=== PATIENT | male | born 1990 | race Caucasian/White ===

== ENCOUNTER 2022-12-12 06:32 | Emergency (ER) | payer BC ==
[~2022-12-12] VITALS: Ht 175.3 cm; Wt 79.0 kg
[2022-12-12] MEDS ORDERED: MORPHINE SULFATE 4 MG/ML CPJ (NOT FOR IM USE) IV STA (06:42)
[2022-12-12] MEDS ORDERED: ACETAMINOPHEN 325MG TABLET PO ONE (08:45)
[2022-12-12] MEDS ORDERED: KETAMINE HCL 50 MG/ML 10ML IV ONE (09:15)
[2022-12-12] MEDS ORDERED: PROPOFOL 200MG/20ML VIAL IV ONE (09:15)
[2022-12-12] MEDS ORDERED: IBUP-2028 PO (10:46)
[2022-12-12] MEDS ORDERED: T3 PO (10:46)
[2022-12-12 11:51] VITALS: BP 104/74
== END 2022-12-12 11:58 | disposition home or self-care (01) ==
LOC: ER 06:32
DX: S43.085A Other dislocation of left shoulder joint, initial encounter (principal); J45.909 Unspecified asthma, uncomplicated; X50.1XXA Overexertion from prolonged static or awkward postures, initial encounter; Y93.89 Activity, other specified; Y92.9 Unspecified place or not applicable
CPT/HCPCS: 73030; 73200; 96374; 99152; 99285; J2270; J2704; J3490; Z7610; L3670